=== PATIENT | female | born 1985 | race Caucasian/White ===

== ENCOUNTER 2018-12-21 11:15 | Emergency (ER) | payer MEDICAID ==
[~2018-12-21] VITALS: Ht 157.5 cm; Wt 83.9 kg
[~2018-12-21 11:15] MED LIST: ACET-73 PO
--- NOTE | 2018-12-21 11:35 | NUR ---
PATIENT WAS SEEN BY MD FOR C/O COUGHING. DC, RX AND FOLLOW UP INSTRUCTIONS GIVEN AND EXPLAINED TO PATIENT WHO STATES SHE UNDERSTANDS ALL INSTRUCTIONS
== END 2018-12-21 11:39 | disposition home or self-care (01) ==
LOC: ER 11:15
DX: J06.9 Acute upper respiratory infection, unspecified (principal); B97.89 Other viral agents as the cause of diseases classified elsewhere; Z88.0 Allergy status to penicillin; Z79.899 Other long term (current) drug therapy
CPT/HCPCS: A4663

== ENCOUNTER 2019-04-14 13:07 | Emergency (ER) | payer MEDICAID ==
[~2019-04-14] VITALS: Ht 157.5 cm; Wt 80.3 kg
--- NOTE | 2019-04-14 13:42 | NUR ---
Patient discharged to home in stable conditon. Written and verbal after care instructions given. Patient verbalizes understanding of instructions.
== END 2019-04-14 13:43 | disposition home or self-care (01) ==
LOC: ER 13:07
DX: M72.2 Plantar fascial fibromatosis (principal); Z88.0 Allergy status to penicillin; Z79.899 Other long term (current) drug therapy
CPT/HCPCS: A4663